=== PATIENT | male | born 1960 | race Two or more races ===

== ENCOUNTER 2021-10-11 20:19 | Emergency (ER) | payer OTHER ==
[~2021-10-11] VITALS: Ht 175.3 cm; Wt 86.2 kg
[2021-10-11] MEDS ORDERED: HYDROMORPHONE HCL 2 MG TABLET PO ONE (20:45)
[2021-10-11] MEDS ORDERED: ONDANSETRON ODT 4 MG TAB.RAPDIS SL ONE (20:45)
[2021-10-11] MEDS ORDERED: ONDANSETRON ODT 4 MG TAB.RAPDIS ONE (20:53)
[2021-10-11] MEDS ORDERED: HYDROMORPHONE HCL 2 MG TABLET ONE (20:54)
--- NOTE | 2021-10-11 20:58 | NUR ---
Patient refused to have blood drawn, ct scan and take PO pain and nausea meds. Dr Roman into speak with patient due to patient requesting to go back to rehab.
[2021-10-11] MEDS ORDERED: NALO4SPR NS (21:03)
--- NOTE | 2021-10-11 21:25 | NUR ---
Gave SBAR report to Gloria nurse [facility] to [facility] patient. ETA 2hrs.
--- NOTE | 2021-10-11 21:40 | NUR ---
Patiuent was given ACI, patient understood ACI instructions. Patient ambulatory with steady gait A/Ox3. Patient refusing to stay in room 4b to waited for rride back to [facility] and rehab. Patient walked out of ER with no distress noted.
[2021-10-11 22:31] VITALS: BP 158/68
== END 2021-10-11 21:40 | disposition home or self-care (01) ==
LOC: ER 20:57
DX: R10.84 Generalized abdominal pain (principal); R41.82 Altered mental status, unspecified; T40.3X5A Adverse effect of methadone, initial encounter; Y92.099 Unspecified place in other non-institutional residence as the place of occurrence of the external cause; F11.20 Opioid dependence, uncomplicated; R03.0 Elevated blood-pressure reading, without diagnosis of hypertension
CPT/HCPCS: A4663; Q0162